=== PATIENT | male | born 1985 | race Hispanic/Latino ===

== ENCOUNTER 2018-09-14 16:05 | Emergency (ER) | payer OTHER, BC ==
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
[2018-09-15 00:45] VITALS: BP 127/72; PULSE 58; RESP 18; TEMP 98.6; O2SAT 99
== END 2018-09-14 19:13 | disposition home or self-care (01) ==
LOC: H.ER 16:05
DX: S09.90XA Unspecified injury of head, initial encounter (principal); M54.2 Cervicalgia; V43.52XA Car driver injured in collision with other type car in traffic accident, initial encounter; Y92.410 Unspecified street and highway as the place of occurrence of the external cause